=== PATIENT | female | born 1980 | race Caucasian/White ===

== ENCOUNTER 2019-04-29 18:45 | Emergency (ER) | payer SELFPAY ==
[2019-04-29 19:13] LABS: Bilirubin Small (Negative); Blood, Urine Trace (Negative); Clarity Cloudy (Clear); Glucose, Urine (Dipstick) Negative (Negative); Leukocyte Negative (Negative); Nitrite Negative (Negative); Protein, Urine (Dipstick) Negative (Neg-Trace); Urobilinogen 0.2 mg/dL (Less than 2)
[2019-04-29 19:15] LABS: Bacteria/HPF 1+ HPF (None Seen); Mucous/LPF 2+ LPF (<2+); RBC/HPF 0-3 HPF (0-3); WBC/HPF 0-3 HPF (0-3)
[2019-04-29] MEDS ORDERED: Ibuprofen 800 MG TAB ONE (19:29)
== END 2019-04-29 19:30 | disposition home or self-care (01) ==
LOC: BURERS 18:45
DX: M54.5 Low back pain (principal); F17.210 Nicotine dependence, cigarettes, uncomplicated
CPT/HCPCS: 81003; 81015; 99284

== ENCOUNTER 2021-01-25 17:27 | Emergency (ER) | payer OTHER ==
[2021-01-25] MEDS ORDERED: Bupivacaine 0.5% 10 ML VIAL ONE (17:44)
[2021-01-25] MEDS ORDERED: HYDROcodone/Acetaminophen 5/325 mg Tablet ONE (18:06)
[2021-01-25] MEDS ORDERED: Penicillin V Potassium 250 MG TAB ONE (18:06)
== END 2021-01-25 18:13 | disposition home or self-care (01) ==
LOC: BURERS 17:27
DX: K04.7 Periapical abscess without sinus (principal); F17.210 Nicotine dependence, cigarettes, uncomplicated
CPT/HCPCS: 64400; J3490

== ENCOUNTER 2021-02-10 09:04 | Emergency (ER) | payer OTHER ==
[2021-02-10] MEDS ORDERED: Bupivacaine 0.5% 10 ML VIAL ONE (09:22)
[2021-02-10] MEDS ORDERED: Ketorolac Tromethamine 30 MG/ML VIAL ONE (09:32)
== END 2021-02-10 09:40 | disposition home or self-care (01) ==
LOC: BURERS 09:04
DX: K08.89 Other specified disorders of teeth and supporting structures (principal); K80.20 Calculus of gallbladder without cholecystitis without obstruction; F17.210 Nicotine dependence, cigarettes, uncomplicated
CPT/HCPCS: 96372; 99282; J1885; J3490

== ENCOUNTER 2022-08-01 11:18 | Emergency (ER) | payer OTHER, SELFPAY ==
[2022-08-01] MEDS ORDERED: Lidocaine 1% w/Epinephrine 1:100K 50 ML VIAL ONE (11:46)
[2022-08-01] MEDS ORDERED: Boostrix 0.5 ML (Tdap) VIAL (>/=7 yrs of age) ONE (12:29)
[2022-08-01] MEDS ORDERED: Amoxicillin/Potassium Clav 875 MG TAB ONE (12:29)
== END 2022-08-01 12:42 | disposition home or self-care (01) ==
LOC: BURERS 11:18
DX: R50.9 Fever, unspecified (principal); B97.4 Respiratory syncytial virus as the cause of diseases classified elsewhere
CPT/HCPCS: 90471; 90715